=== PATIENT | male | born 1975 | race Caucasian/White ===

== ENCOUNTER 2021-05-24 20:01 | Emergency (ER) | payer OTHER ==
[~2021-05-24] VITALS: Ht 177.8 cm; Wt 104.3 kg
[2021-05-24] MEDS ORDERED: KEFLEX250 MG PO (20:45)
[2021-05-24] MEDS ORDERED: BENADRYL25 MG PO (20:45)
[2021-05-24] MEDS ORDERED: PREDNISONE 20 M20 MG PO (20:45)
[2021-05-24 20:52] VITALS: BP 168/101
== END 2021-05-24 20:53 | disposition home or self-care (01) ==
LOC: ER 20:01
DX: L25.9 Unspecified contact dermatitis, unspecified cause (principal)